=== PATIENT | male | born 1975 | race Caucasian/White ===

== ENCOUNTER 2019-01-23 16:43 | Emergency (ER) | payer SELFPAY, OTHER | END 2019-01-23 19:57 | disposition left against medical advice (07) | LOC: E/R 16:43 | DX: Z53.21 Procedure and treatment not carried out due to patient leaving prior to being seen by health care provider (principal) | CPT/HCPCS: 93005 ==

== ENCOUNTER 2019-03-15 21:14 | Emergency (ER) | payer OTHER ==
[2019-03-16] MEDS: morphine 4 MG/ML VIAL IV (00:28)
[2019-03-16] MEDS: SOD CHLORIDE 0.9% 1,000 ML IV (00:28)
[2019-03-16] MEDS: ONDANSETRON 4 MG INJ IV (00:28)
[2019-03-16 00:36] LABS: ADD MAN DIFF? NO
[2019-03-16 00:39] LABS: WHITE BLOOD COUNT 12.6 10^3/ul (4.8-10.8)
[2019-03-16 00:39] LABS: BASOPHIL # 0.1 10^3/ul (0.0-0.1); BASOPHILS % 0.5 % (0.0-2.0); EOSINOPHILS # 0.1 10^3/ul (0.0-0.5); EOSINOPHILS % 0.6 % (0.0-7.0); HEMATOCRIT 46.2 % (42.0-52.0); HEMOGLOBIN 15.8 g/dl (14.0-18.0); LYMPHOCYTES # 3.5 10^3/ul (0.8-2.9); LYMPHOCYTES % 27.9 % (15.0-51.0); MEAN CORPUSCULAR HEMOGLOBIN 30.9 pg (29.0-33.0); MEAN CORPUSCULAR HGB CONC 34.2 g/dl (32.0-37.0); MEAN CORPUSCULAR VOLUME 90.4 fl (82.0-101.0); MEAN PLATELET VOLUME 11.5 fl (7.4-10.4); MONOCYTE # 0.7 10^3/ul (0.3-0.9); MONOCYTES % 5.8 % (0.0-11.0); NEUTROPHIL # 8.2 10^3/ul (1.6-7.5); PLATELET COUNT 214 10^3/UL (140-415); RED BLOOD COUNT 5.11 10^6/ul (4.70-6.10); RED CELL DISTRIBUTION WIDTH 12.6 % (11.5-14.5)
[2019-03-16 01:03] LABS: ALANINE AMINOTRANSFERASE 21 IU/L (13-69); ALBUMIN 4.7 g/dl (3.3-4.9); ALBUMIN/GLOBULIN RATIO 1.38; ALKALINE PHOSPHATASE 167 IU/L (42-121); ANION GAP 14 (5-13); ASPARTATE AMINO TRANSFERASE 24 IU/L (15-46); BILIRUBIN,INDIRECT 0.6 mg/dl (0-1.1); BILIRUBIN,TOTAL 0.6 mg/dl (0.2-1.3); BLOOD UREA NITROGEN 22 mg/dl (7-20); CALCIUM 9.2 mg/dl (8.4-10.2); CARBON DIOXIDE 25 mmol/L (21-31); CHLORIDE 99 mmol/L (97-110); CREATININE 1.29 mg/dl (0.61-1.24); Estimated GFR > 60 mL/min (>60); GLUCOSE 296 mg/dl (70-220); POTASSIUM 3.8 mmol/L (3.5-5.1); SODIUM 138 mmol/L (135-144); TOTAL PROTEIN 8.1 g/dl (6.1-8.1)
[2019-03-16 01:14] LABS: TROPONIN-I 0.014 ng/ml (0.000-0.120)
== END 2019-03-16 02:29 | disposition home or self-care (01) ==
LOC: E/R 21:14
DX: R55 Syncope and collapse (principal); Z79.01 Long term (current) use of anticoagulants; Z98.61 Coronary angioplasty status; Z79.4 Long term (current) use of insulin; Z87.891 Personal history of nicotine dependence
CPT/HCPCS: 36415; 70450; 71045; 80053; 82962; 84484; 85025; 93005; 96374; 96375; 99285-25